=== PATIENT | female | born 1980 | race Asian ===

== ENCOUNTER 2024-04-30 10:50 | Outpatient (CLI) | payer OTHER | END 2024-04-30 10:51 | disposition home or self-care (01) | LOC: CSHMAMMO 10:50 | PROVIDERS: ATTEND Family Medicine | DX: Z12.31 Encounter for screening mammogram for malignant neoplasm of breast (principal) | CPT/HCPCS: 77063; 77067 ==

== ENCOUNTER 2024-05-10 08:34 | Outpatient (CLI) | payer OTHER | END 2024-05-10 08:35 | disposition home or self-care (01) | LOC: CSHULT 08:34 | PROVIDERS: ATTEND Family Medicine | DX: R74.8 Abnormal levels of other serum enzymes (principal); K76.0 Fatty (change of) liver, not elsewhere classified; K82.8 Other specified diseases of gallbladder | CPT/HCPCS: 76705 ==